=== PATIENT | female | born 1955 | race Caucasian/White ===

== ENCOUNTER 2018-10-17 09:42 | Outpatient (CLI) | payer OTHER ==
--- NOTE | 2018-10-18 10:13 | Mammography Report ---
Reason: ANNUAL SCREENING MAMMOGRAM Procedure Date: 10/17/2018 Accession Number: [id number] / [id number] Procedure: SIMRAN - Screening Mammo w/[place] CPT Code: FULL RESULT: EXAM: Screening Mammo w/[place] DATE: 10/17/2018 10:32 AM CLINICAL HISTORY: Screening encounter. History of early menses and nulliparity. TECHNIQUE: (B) - Bilateral CC and MLO views were obtained. COMPARISON: 05/29/2016 through 04/09/2009. PARENCHYMAL PATTERN: (A) - The breast(s) demonstrate(s) scattered fibroglandular densities. FINDINGS: There are coarse typically benign calcifications and typically benign vascular calcifications. There are no suspicious masses, calcifications, or areas of distortion. IMPRESSION: Benign findings. BI-RADS category 2. RECOMMENDATION: (ANNUAL) - Recommend routine annual screening mammography. BI-RADS CATEGORY: (2) - Benign Findings. STANDARD QUALIFYING STATEMENTS: 1. This examination was not reviewed with the aid of Computer-Aided Detection (CAD). 2. A negative or benign imaging report should not preclude biopsy if clinically suspicious findings are present. 3. Dense breasts may obscure an underlying neoplasm. 4. This examination was reviewed with the aid of 3D breast imaging (tomosynthesis).
== END 2018-10-17 09:43 | disposition home or self-care (01) ==
LOC: DI 09:42
PROVIDERS: ATTEND Family Medicine
DX: Z12.31 Encounter for screening mammogram for malignant neoplasm of breast (principal)
CPT/HCPCS: 77063; 77067

== ENCOUNTER 2020-01-25 14:59 | Outpatient (CLI) | payer MEDICARE, BC ==
--- NOTE | 2020-01-26 09:08 | Mammography Report ---
BILATERAL DIGITAL SCREENING MAMMOGRAM 3D/2D: 01/25/2020 CLINICAL: Routine screening. Comparison is made to exams dated: 10/17/2018 mammogram, 05/29/2016 mammogram - [facility], 06/13/2013 mammogram - [facility], and 06/10/2011 mammogram - [facility] There are scattered fibroglandular elements in both breasts. There are new grouped fine calcifications in the left breast at 1 o'clock middle depth. No other significant masses, calcifications, or other findings are seen in either breast. IMPRESSION: INCOMPLETE: NEEDS ADDITIONAL IMAGING EVALUATION The new grouped fine calcifications in the left breast are indeterminate. Mediolateral, spot magnifi cation, and additional views are recommended. This exam was interpreted at Station ID: [id number]. NOTE: For mammograms, a report in lay terms will be sent to the patient. Approximately 15% of breast malignancies will not be visualized mammographically. In the management of a palpable breast mass, a negative mammogram must not discourage biopsy of a clinically suspicious lesion. Electronically Signed By: Jose R Douglass M.D. ddp/penrad:01/25/2020 16:43:24 ACR BI-RADS Category 0: Incomplete 3340F PARENCHYMAL PATTERN: (A) - The breast(s) demonstrate(s) scattered fibroglandular densities. BI-RADS CATEGORY: (0) - 0 RECOMMENDATION: (ADDMAM) - Recommend additional mammographic views. [id number] Immediate follow-up LATERALITY: (B)
== END 2020-01-25 15:00 | disposition home or self-care (01) ==
LOC: DI 14:59
DX: Z12.31 Encounter for screening mammogram for malignant neoplasm of breast (principal); R92.8 Other abnormal and inconclusive findings on diagnostic imaging of breast
CPT/HCPCS: 77063; 77067

== ENCOUNTER 2020-03-08 14:32 | Outpatient (CLI) | payer MEDICARE, BC ==
--- NOTE | 2020-03-11 16:18 | Mammography Report ---
UNILATERAL LEFT DIGITAL DIAGNOSTIC MAMMOGRAM 3D/2D: 03/08/2020 CLINICAL: Patient returns for magnification views of microcalcifications in the left breast. Comparison is made to exams dated: 01/25/2020 mammogram, 10/17/2018 mammogram, 05/29/2016 mammogram - [facility], 06/13/2013 mammogram - [facility], 06/10/2011 mammogram, and 009 mammogram - [facility]. There are scattered fibroglandular elements in left br east. There are 0.4 cm grouped coarse heterogeneous calcifications in the left breast at 1 o'clock middle d epth. These are seen in additional views. No other significant masses or calcifications are seen in the breast. IMPRESSION: SUSPICIOUS OF MALIGNANCY The 0.4 cm grouped coarse heterogeneous calcifications in the left breast are at a low suspicion for malignancy. A stereotactic biopsy is recommended. Findings and recommendations were discussed with the patient by Dr. Dubon during today's examination. This exam was interpreted at Station ID: [id number]. NOTE: For mammograms, a report in lay terms will be sent to the patient. Approximately 15% of breast malignancies will not be visualized mammographically. In the management of a palpable breast mass, a negative mammogram must not discourage biopsy of a clinically suspicious lesion. Electronically Signed By: Nj Carvajal M.D. aty/:03/08/2020 16:34:08 ACR BI-RADS Category 4a: Suspicious abnormality - low suspicion for malignancy 3344F PARENCHYMAL PATTERN: (A) - The breast(s) demonstrate(s) scattered fibroglandular densities. BI-RADS CATEGORY: (4a) - Low Susp None [id number] Immediate follow-up LATERALITY: ()
== END 2020-03-08 14:33 | disposition home or self-care (01) ==
LOC: DI 14:32
PROVIDERS: ATTEND Family Medicine
DX: R92.8 Other abnormal and inconclusive findings on diagnostic imaging of breast (principal)